=== PATIENT | male | born 1975 | race Caucasian/White ===

== ENCOUNTER 2020-09-06 11:46 | Emergency (ER) | payer OTHER ==
[~2020-09-06] VITALS: Ht 170.2 cm; Wt 70.3 kg
[2020-09-06 11:47] VITALS: BP 125/78
[2020-09-06] MEDS ORDERED: DICYCLOMINE HCL20 MG PO (11:56)
[2020-09-06] MEDS ORDERED: CARAFATE1 GM PO (11:57)
[2020-09-06] MEDS ORDERED: FLEXERIL PO (11:58)
[2020-09-06] MEDS ORDERED: PROTONIX40 M2 PO (11:58)
[2020-09-06] MEDS ORDERED: OLANZAPINE ODT5 MG PO ×2 (11:59)
[2020-09-06] MEDS ORDERED: ASPIRIN EC81 M1 PO (11:59)
[2020-09-06] MEDS ORDERED: HALOPERIDOL 1 MG1 MG PO (12:04)
== END 2020-09-06 12:39 | disposition admitted as inpatient to this hospital (09) ==
LOC: ER 11:46
DX: F91.9 Conduct disorder, unspecified (principal); Z20.822 Contact with and (suspected) exposure to COVID-19